=== PATIENT | male | born 1965 | race Caucasian/White ===

== ENCOUNTER 2024-11-23 15:56 | Emergency (ER) | payer SELFPAY ==
[~2024-11-23] VITALS: Ht 188 cm; Wt 115.0 kg
[2024-11-23] MEDS ORDERED: NORVASC10 MG PO ×2 (16:11→16:40)
[2024-11-23] MEDS ORDERED: HYDROCODON-ACE1 EAC8 PO (16:11)
[2024-11-23] MEDS ORDERED: HYDROCODON-ACE1 EA10 PO (16:40)
[2024-11-23 16:47] VITALS: BP 161/120
== END 2024-11-23 16:47 | disposition home or self-care (01) ==
LOC: ED 15:56
DX: I10 Essential (primary) hypertension (principal); M54.16 Radiculopathy, lumbar region; Z88.1 Allergy status to other antibiotic agents; Z79.899 Other long term (current) drug therapy; Z79.891 Long term (current) use of opiate analgesic
CPT/HCPCS: 99283